=== PATIENT | male | born 1960 | race Caucasian/White ===

== ENCOUNTER 2017-03-28 11:30 | Day surgery (SDC) | payer MEDICARE, OTHER ==
[2017-03-25 09:32] VITALS: BMI 22.2
[2017-03-28] MEDS ORDERED: Propofol 10 mg/ml Inj (20 ML) ONE (12:08)
[2017-03-28] MEDS ORDERED: Lidocaine Hydrochloride 5 ML INJ ONE (12:08)
[2017-03-28] MEDS ORDERED: Midazolam 2 MG/2 ML VIAL ONE (12:08)
[2017-03-28 12:13] VITALS: O2SAT 100
[2017-03-28] MEDS ORDERED: Ciprofloxacin 400mg/200ml D5W 400 MG/200 ML BAG IVPB ONE (12:52)
[2017-03-28] MEDS ORDERED: ePHEDrine 50 mg/ml Inj ONE (13:08)
[2017-03-28] MEDS ORDERED: HYDROmorphone 0.5 mg/0.5 ml ISec IVP PRN (13:27)
[2017-03-28] MEDS ORDERED: Lactated Ringer's 1,000 ML IV SCH (13:30)
[2017-03-28 14:24] VITALS: TEMP 97
[2017-03-28 15:11] VITALS: BP 124/76; PULSE 74; RESP 18
--- NOTE | 2017-03-28 17:51 | OP ---
PROCEDURE DATE: 03/28/2017 PREOPERATIVE DIAGNOSES: Neurogenic bladder, history of multiple sclerosis, and urinary retention, pr ostatic hypertrophy. POSTOPERATIVE DIAGNOSIS: Neurogenic bladder, history of multiple sclerosis, and urinary retention, p rostatic hypertrophy. PROCEDURE: Cystometrogram and cystoscopy. DESCRIPTION OF THE PROCEDURE: While the patient in supine position, water drip made. It showed the bladder capacity could not exceed 150 mL with heavily trabeculated bladder. The patient with a very spastic bladder. The patient voiding around the catheter and elevated the water pressure. After rem oving the Vargas, genitalia prepped and draped in sterile fashion. Cysto under anesthesia revealed ur ethra normal, prostatic urethra around 2.6 cm with bilateral lobe enlargement, and narrow bladder nec k area. While the scope in the veru, the floor could not be seen, only the lateral wall could be see n. The bladder itself heavily trabeculated, was circular, and the floor, lateral wall all involved w ith the heavy trabeculation. After filling the bladder, the scope removed, #18 Vargas inserted, and p atient transferred to the recovery room in stable condition. Kory Ch MD cc: 43 TT: 03/28/2017 17:50:50 juliann
== END 2017-03-28 14:55 | disposition home or self-care (01) ==
LOC: C.SDS 11:30
PROVIDERS: ATTEND Specialist
DX: N31.9 Neuromuscular dysfunction of bladder, unspecified (principal); N40.1 Benign prostatic hyperplasia with lower urinary tract symptoms; R33.9 Retention of urine, unspecified; G35 Multiple sclerosis
CPT/HCPCS: 51725; 52000; J0744

== ENCOUNTER 2017-04-06 12:01 | Inpatient (IN) | payer MEDICARE, OTHER ==
[2017-03-25 09:32] VITALS: BMI 22.2
[2017-04-06] MEDS ORDERED: Midazolam 2 MG/2 ML VIAL ONE (13:07)
[2017-04-06] MEDS ORDERED: Propofol 10 mg/ml Inj (20 ML) ONE (13:08)
[2017-04-06] MEDS ORDERED: Ciprofloxacin 400mg/200ml D5W 400 MG/200 ML BAG IVPB ONE (13:21)
[2017-04-06] MEDS ORDERED: Lidocaine 2% Jelly (Uro-Jet) ONE (13:21)
[2017-04-06] MEDS ORDERED: Lactated Ringer's 1,000 ML IV ONE ×2 (13:23→16:25)
[2017-04-06] MEDS ORDERED: HYDROmorphone 0.5 mg/0.5 ml ISec IVP PRN (14:32)
[2017-04-06] MEDS ORDERED: Oxycodone/Acetaminophen 5/325 mg Tab PO PRN (14:39)
[2017-04-06] MEDS ORDERED: Lactated Ringer's 1,000 ML IV SCH (14:45)
[2017-04-06 15:14] LABS: HEMATOCRIT 31.9 % (35.0-51.0); MEAN CELL VOLUME 90.4 fL (80.0-94.0); MEAN CORPUSCULAR HGB CONC 33.1 g/dL (33.0-37.0); MEAN PLATELET VOLUME 7.6 fL (7.2-11.7); WHITE BLOOD COUNT 11.1 K/uL (4.8-10.8)
[2017-04-06 15:27] LABS: CHLORIDE 98 mmol/L (98-107); POTASSIUM 3.8 mmol/L (3.6-5.2); SODIUM 133 mmol/L (132-148)
[2017-04-06 15:30] LABS: BLOOD UREA NITROGEN 26 mg/dL (9-20); CARBON DIOXIDE 27 mmol/L (22-30); GFR AFRICAN-AMERICAN > 60; GLUCOSE,RANDOM 130 mg/dL (75-110)
[2017-04-06 15:31] LABS: CALCIUM 8.1 mg/dl (8.6-10.4)
[2017-04-06] MEDS ORDERED: Bisacodyl 5mg EC Tab PO ONE ×2 (15:40→22:00)
--- NOTE | 2017-04-06 16:38 | OP ---
PROCEDURE DATE: 04/06/2017 PREOPERATIVE DIAGNOSES: Prostatic hypertrophy, fibrotic prostate, with urinary retention, question n eurogenic bladder. PROCEDURE: Transurethral resection prostate. PROCEDURE: While the patient in lithotomy position, and after starting anesthesia, genitalia prepped and draped in sterile fashion. Resectoscope, 25-[place], inserted. Inspecting the bladder revealed trabeculation with edema from the Vargas, which was there on and off for the last months. The prostat e occluded with fibrotic prostatic enlargement causing obstruction, a deep groove at 1 o'clock, anoth er deep groove at 1 o'clock. All the lateral tissue resected. There was bleeding from the fibrotic area. Looked like it is the capsule spread and venous bleed. All the tissue resected. All the extr a tissue irrigated out. There was no obstruction between the veru and the bladder neck. The floor c lean, and continuation with the trigone. After irrigating the tissue using , and again fulgurat ing the area, which looked like venous bleeding, the scope removed, and pushing on the bladder reveal ed good stream. A #24 Vargas catheter 3-way inserted, inflated to 30 mL, and with traction the urine became clear. The patient tolerated the procedure well and he will be transferred to the recovery room in stable co ndition. Will keep him overnight under observation. Kory Ch MD cc: 43 TT: 04/06/2017 16:37:02 juliann
[2017-04-06] MEDS: Lactated Ringer's 1,000 ML IV SCH (19:49)
[2017-04-07 01:13] VITALS: RESP 20
[2017-04-07] MEDS: Lactated Ringer's 1,000 ML IV SCH (03:27)
[2017-04-07 08:24] VITALS: BP 137/81; PULSE 90; TEMP 98.8; O2SAT 98
== END 2017-04-07 13:36 | disposition home or self-care (01) | DRG 714 ==
LOC: C.SDS 12:01 → C.9S 14:49 → C.6T 17:13
PROVIDERS: ADMIT Specialist; ATTEND Specialist
PROC: 0VT08ZZ Resection of Prostate, Via Natural or Artificial Opening Endoscopic (ICD-10-PCS; principal; 2017-04-06 13:30)
DX: N40.1 Benign prostatic hyperplasia with lower urinary tract symptoms (principal); N32.89 Other specified disorders of bladder; R33.8 Other retention of urine